=== PATIENT | female | born 1945 | race Caucasian/White ===

== ENCOUNTER → 2017-05-01 | Outpatient (CLI) | payer MEDICARE, OTHER | LOC: WCC 04-17 09:02 | DX: L89.623 Pressure ulcer of left heel, stage 3 (principal); L89.154 Pressure ulcer of sacral region, stage 4; L97.319 Non-pressure chronic ulcer of right ankle with unspecified severity; L97.219 Non-pressure chronic ulcer of right calf with unspecified severity; I87.2 Venous insufficiency (chronic) (peripheral) | CPT/HCPCS: A6207; A6212; G0463 ==

== ENCOUNTER 2018-03-05 09:52 | Inpatient (IN) | payer MEDICARE, OTHER ==
[2018-03-05] MEDS ORDERED: DAKIN'S 0.500 ML/1 B TOP (16:30)
[2018-03-05] MEDS ORDERED: PRILOSEC 20MG20 MG PO (16:31)
[2018-03-05] MEDS ORDERED: BENGAY ULTRA ST TP (16:32)
[2018-03-05] MEDS ORDERED: CELEXA 20MG20 MG/TAB PO (16:33)
[2018-03-05] MEDS ORDERED: CELEXA40 MG PO (16:34)
[2018-03-05] MEDS ORDERED: CUBICIN 500MG500 MG IV (16:35)
[2018-03-05] MEDS ORDERED: FOLIC ACID 11 MG/TA1 PO (16:36)
[2018-03-05] MEDS ORDERED: DETROL LA4 PO (16:36)
[2018-03-05] MEDS ORDERED: PREDNISONE20 MG PO (16:37)
[2018-03-05] MEDS ORDERED: ZOFRAN 4MG T4 MG/TAB PO (16:38)
[2018-03-05] MEDS ORDERED: ROXICODONE 55 MG/TAB PO (16:39)
[2018-03-05] MEDS ORDERED: PERCOCET 325 MG1 TA2 PO (16:40)
[2018-03-06 09:34] VITALS: BP 123/75; PULSE 78; TEMP 98.6
[2018-03-09] MEDS ORDERED: ASPI325T6 PO (07:30)
[2018-03-09] MEDS ORDERED: ULTRAM 50MG TAB50 MG PO (07:31)
[2018-03-09] MEDS ORDERED: MELAT3MGTAB PO (07:32)
== END 2018-03-11 14:36 | DRG 470 ==
LOC: SURG 13:15 → JCC 03-06 07:30 → SURG 03-11 14:36
PROC: 0SR90JA Replacement of Right Hip Joint with Synthetic Substitute, Uncemented, Open Approach (ICD-10-PCS; principal; 2018-03-06)
DX: M16.11 Unilateral primary osteoarthritis, right hip (principal); M80.851A Other osteoporosis with current pathological fracture, right femur, initial encounter for fracture; I87.8 Other specified disorders of veins; L89.512 Pressure ulcer of right ankle, stage 2; M06.9 Rheumatoid arthritis, unspecified; F32.9 Major depressive disorder, single episode, unspecified; D53.9 Nutritional anemia, unspecified
CPT/HCPCS: J1170

== ENCOUNTER 2018-03-05 13:14 | Inpatient (IN) | payer MEDICARE, OTHER ==
[~2018-03-05] VITALS: Ht 137.2 cm; Wt 50.1 kg
[2018-03-05 13:43] VITALS: BP 126/75; PULSE 90
[2018-03-05 15:08] LABS: BASO % 0.4 % (0.0-2.0); GRAN # 3.5 (1.4-6.5); GRAN % 68.9 % (42.2-75.2); LYMPH # 1.1 (1.2-3.4); MEAN CELL VOLUME 102 fl (80.0-100.0); MEAN CORPUSCULAR HGB CONC 32 g/dl (33.0-37.0); MEAN PLATELET VOLUME 9.6 fl (7.4-10.4); MONO # 0.4 (0.1-0.6); MONO % 7.3 % (1.7-9.3); PLATELET COUNT 295 K/mm3 (130-400); RED BLOOD COUNT 2.63 M/mm3 (4.10-5.30)
[2018-03-05 15:13] LABS: HEMATOCRIT 26.8 % (37.0-47.0); HEMOGLOBIN 8.5 g/dl (12.5-16.0); MEAN CORPUSCULAR HEMOGLOBIN 32 pg (27.0-31.0)
[2018-03-05 15:15] LABS: PROTHROMBIN TIME 11.9 SECONDS (9.7-12.8)
[2018-03-05 15:19] LABS: ALBUMIN 3.2 gm/dL (3.5-5.0); BILIRUBIN,TOTAL 0.3 mg/dL (0.0-1.0); CALCIUM 9.2 mg/dL (8.4-10.2); CREATININE, serum 0.74 mg/dL (0.52-1.25); POTASSIUM 4.2 mmol/L (3.4-5.0); TOTAL PROTEIN 6.1 gm/dL (6.4-8.2)
[2018-03-05 15:27] LABS: PRE ALBUMIN 23.5 mg/dL (17.6-36.0)
[2018-03-05 16:03] VITALS: BP 121/76; PULSE 82; TEMP 98.1
[2018-03-05] MEDS ORDERED: DAKIN'S 0.500 ML/1 B TOP (16:30)
[2018-03-05] MEDS ORDERED: PRILOSEC 20MG20 MG PO (16:31)
[2018-03-05] MEDS ORDERED: BENGAY ULTRA ST TP (16:32)
[2018-03-05] MEDS ORDERED: CELEXA 20MG20 MG/TAB PO (16:33)
[2018-03-05] MEDS ORDERED: CELEXA40 MG PO (16:34)
[2018-03-05] MEDS ORDERED: CUBICIN 500MG500 MG IV (16:35)
[2018-03-05] MEDS ORDERED: DETROL LA4 PO (16:36)
[2018-03-05] MEDS ORDERED: FOLIC ACID 11 MG/TA1 PO (16:36)
[2018-03-05] MEDS ORDERED: PREDNISONE20 MG PO (16:37)
[2018-03-05] MEDS ORDERED: ZOFRAN 4MG T4 MG/TAB PO (16:38)
[2018-03-05] MEDS ORDERED: ROXICODONE 55 MG/TAB PO (16:39)
[2018-03-05] MEDS ORDERED: PERCOCET 325 MG1 TA2 PO (16:40)
[2018-03-05 19:59] VITALS: BP 146/90; PULSE 92; TEMP 98.7
[2018-03-05 20:42] LABS: MUCOUS Present /lpf; PH 6 (5-8); SQUAMOUS EPITHELIAL 0-2 /hpf; URINE APPEARANCE Clear; URINE BACTERIA None Seen /hpf; URINE BILIRUBIN Negative (NEGATIVE); URINE BLOOD 2+ (NEGATIVE); URINE COLOR Yellow; URINE GLUCOSE Negative (NEGATIVE); URINE KETONE Negative (NEGATIVE); URINE LEUKOCYTE ESTERASE Negative (NEGATIVE); URINE NITRATE Negative (NEGATIVE); URINE PROTEIN(semi-quant) 1+ (NEGATIVE)
[2018-03-05 21:28] LABS: COLLECTION METHOD CLEAN CATCH
[2018-03-06] VITALS (15 sets, daily range): BP systolic 86–139; BP diastolic 53–81; PULSE 71–88; TEMP 97.6–98.5
[2018-03-06 06:35] LABS: BASO % 0.5 % (0.0-2.0); EOS # 0.2 (0.0-0.7); EOS % 2.6 % (0-4.0); GRAN # 3.1 (1.4-6.5); GRAN % 42.5 % (42.2-75.2); MEAN CELL VOLUME 104 fl (80.0-100.0); MEAN CORPUSCULAR HGB CONC 30 g/dl (33.0-37.0); MEAN PLATELET VOLUME 9.8 fl (7.4-10.4); MONO # 0.9 (0.1-0.6); MONO % 12.6 % (1.7-9.3); PLATELET COUNT 297 K/mm3 (130-400); RED BLOOD COUNT 2.62 M/mm3 (4.10-5.30); REDCELL DISTRIBUTION WIDTH-CV 18.8 % (11.5-14.5)
[2018-03-06 06:40] LABS: HEMATOCRIT 27.3 % (37.0-47.0); HEMOGLOBIN 8.3 g/dl (12.5-16.0); MEAN CORPUSCULAR HEMOGLOBIN 32 pg (27.0-31.0)
[2018-03-06 06:47] LABS: BILIRUBIN,TOTAL 0.4 mg/dL (0.0-1.0); CREATININE, serum 0.68 mg/dL (0.52-1.25); POTASSIUM 3.8 mmol/L (3.4-5.0); TOTAL PROTEIN 5.8 gm/dL (6.4-8.2)
[2018-03-07] VITALS (10 sets, daily range): BP systolic 126–166; BP diastolic 68–87; PULSE 85–100; TEMP 97.8–98.6
[2018-03-07 08:53] LABS: HEMATOCRIT 22.9 % (37.0-47.0); HEMOGLOBIN 7.1 g/dl (12.5-16.0)
[2018-03-08 04:14] VITALS: BP 143/80; PULSE 96; TEMP 98.3
[2018-03-08 07:30] LABS: HEMOGLOBIN 8.2 g/dl (12.5-16.0)
[2018-03-08 07:35] LABS: CREATININE, serum 0.73 mg/dL (0.52-1.25)
[2018-03-08 07:41] VITALS: BP 162/79; PULSE 88; TEMP 98
[2018-03-08 15:35] VITALS: BP 127/80; PULSE 91; TEMP 97.6
[2018-03-08 20:00] VITALS: BP 146/76; PULSE 59; TEMP 98.4
[2018-03-08 23:32] VITALS: BP 143/70; PULSE 80; TEMP 98.1
[2018-03-09 04:44] VITALS: BP 134/80; PULSE 88; TEMP 98.2
[2018-03-09 07:21] LABS: HEMATOCRIT 27.3 % (37.0-47.0); HEMOGLOBIN 8.7 g/dl (12.5-16.0)
[2018-03-09] MEDS ORDERED: ASPI325T6 PO (07:30)
[2018-03-09] MEDS ORDERED: ULTRAM 50MG TAB50 MG PO (07:31)
[2018-03-09] MEDS ORDERED: MELAT3MGTAB PO (07:32)
[2018-03-09 20:30] VITALS: BP 109/72; PULSE 93; TEMP 97.7
[2018-03-10 04:00] VITALS: BP 108/65; PULSE 72; TEMP 97.5
[2018-03-10 10:08] VITALS: BP 149/90; PULSE 80; TEMP 97.5
[2018-03-10 13:39] VITALS: BP 148/76; PULSE 91; TEMP 98
[2018-03-10 16:54] VITALS: BP 132/77; PULSE 95; TEMP 97.8
[2018-03-10 20:00] VITALS: BP 139/77; PULSE 84; TEMP 98.3
[2018-03-11 04:00] VITALS: BP 122/66; PULSE 98; TEMP 98.3
[2018-03-11 12:09] VITALS: BP 128/77; PULSE 91; TEMP 97.7
== END 2018-03-11 14:36 | DRG 470 ==
LOC: SURG 13:14
PROVIDERS: Hospitalist; Orthopaedic Surgery; Physician Assistant
PROC: 0SR90JA Replacement of Right Hip Joint with Synthetic Substitute, Uncemented, Open Approach (ICD-10-PCS; principal; 2018-03-06 07:30)
DX: M16.11 Unilateral primary osteoarthritis, right hip (principal); M80.851A Other osteoporosis with current pathological fracture, right femur, initial encounter for fracture; I87.8 Other specified disorders of veins; L89.512 Pressure ulcer of right ankle, stage 2; M06.9 Rheumatoid arthritis, unspecified; F32.9 Major depressive disorder, single episode, unspecified; D53.9 Nutritional anemia, unspecified; F41.9 Anxiety disorder, unspecified
CPT/HCPCS: 99223; 99232-AI; 99233-AI; 99238; A9284; C1713; C1776; J0690; J0878; J1100; J1170; J2250; J2270; J2274; J2405; J2704; J3010; J7042; J7050; J7120; J7512; P9016